=== PATIENT | female | born 1950 | race Hispanic/Latino ===

== ENCOUNTER 2017-01-31 15:46 | Emergency (ER) | payer OTHER ==
--- NOTE | 2017-01-31 16:43 | Emergency Department Report ---
ED General Adult HPI - General Chief complaint: Extremity Injury, Lower Stated complaint: CELLULITIS OF LEGS Time Seen by Provider: 01/31/17 16:19 Source: patient, RN/MD, RN notes reviewed, old records reviewed Mode of arrival: Stretcher Limitations: Other (patient is a poor historian) - History of Present Illness Initial comments: This is a 66-year-old female. Patient has a past medical history of diabetes, hypertension, bipolar disorder/psychosis, currently on a 1013. The patient is sent to the ER for issue with bilateral lower extremity pain and swelling. The patient cannot tell me how long her legs have looked like this for, she cannot describe exacerbating or relieving factors. The patient requests that she would like something to drink. She was sent to the ER today from her psychiatric facility for evaluation of bilateral lower extremity redness. Patient's old medical records are reviewed, and they do not indicate presence of rash or redness to her recent hospitalization. As per review of her psychiatric notes, patient was found to have positive edema " positive Homans sign." There was concern about DVT, and possible cellulitis. Her enclosed paperwork does not indicate if she is taking antibiotics at this time. Location: left, right, lower extremity Consistency: constant Improves with: other (per hpi) Worsens with: other (per hpi) Associated Symptoms: other (per hpi) - Related Data Home Medications Medication Instructions Recorded Confirmed Last Taken Aspirin [Adult Low Dose Aspirin EC] 81 mg PO DAILY 01/08/17 01/08/17 Unknown Benztropine [Cogentin] 0.5 mg PO BID 01/08/17 01/08/17 Unknown Clonidine HCl [Catapres] 1 mg PO DAILY 01/08/17 01/08/17 Unknown Depakote 1,000 mg PO HS 01/08/17 01/08/17 Unknown Folic Acid 1 mg PO DAILY 01/08/17 01/08/17 Unknown Haloperidol [Haldol] 2 mg PO BID 01/08/17 01/08/17 Unknown Insulin Regular, Human 3 units SUB-Q TIDAC 01/08/17 01/08/17 Unknown Latuda 80 mg PO DAILY 01/08/17 01/08/17 Unknown Multivitamin Tab 1 tab PO DAILY 01/08/17 01/08/17 Unknown Propranolol [Inderal] 10 mg PO DAILY 01/08/17 01/08/17 Unknown amLODIPine [Norvasc] 5 mg PO DAILY 01/08/17 01/08/17 Unknown traZODone [Desyrel] 25 mg PO QHS PRN 01/08/17 01/08/17 Unknown Previous Rx's Medication Instructions Recorded Last Taken Type Clopidogrel [Plavix] 75 mg PO QDAY #30 tablet 01/13/17 Unknown Rx Insulin Glargine [Lantus VIAL] 5 units SQ QHS 30 Days 01/13/17 Unknown Rx OLANzapine ZYDIS [ZyPREXA Zydis] 5 mg PO HS #7 tab.rapdis 01/13/17 Unknown Rx VALPROIC ACID Liq [DepaKENE Liq] 1,000 mg PO HS 7 Days 01/13/17 Unknown Rx VALPROIC ACID Liq [DepaKENE Liq] 500 mg PO DAILY 1 Days 01/13/17 Unknown Rx cloNIDine-TTS PATCH [Catapres-Tts 0.3 mg TD QWEEK #7 patch 01/13/17 Unknown Rx Patch] metFORMIN [Glucophage] 850 mg PO BIDDIAB #60 tablet 01/13/17 Unknown Rx traZODone [Desyrel] 50 mg PO QHS #7 tablet 01/13/17 Unknown Rx Doxycycline [Vibramycin CAP] 100 mg PO Q12HR #13 capsule 01/31/17 Unknown Rx Triamcinolone Acetonide 15 gm TP BID #1 cream..g. 01/31/17 Unknown Rx Allergies Allergy/AdvReac Type Severity Reaction Status Date / Time Unable to Assess Allergy Verified 01/07/17 05:35 ED Review of Systems ROS: Stated complaint: CELLULITIS OF LEGS Other details as noted in HPI Comment: Unobtainable due to pts medical conditions ED Past Medical Hx - Past Medical History Hx Psychiatric Treatment: Yes Additional medical history: Bi polar - Social History Smoking Status: Never Smoker - Medications Home Medications: Home Medications Medication Instructions Recorded Confirmed Last Taken Type Aspirin [Adult Low Dose Aspirin EC] 81 mg PO DAILY 01/08/17 01/08/17 Unknown History Benztropine [Cogentin] 0.5 mg PO BID 01/08/17 01/08/17 Unknown History Clonidine HCl [Catapres] 1 mg PO DAILY 01/08/17 01/08/17 Unknown History Depakote 1,000 mg PO HS 01/08/17 01/08/17 Unknown History Folic Acid 1 mg PO DAILY 01/08/17 01/08/17 Unknown History Haloperidol [Haldol] 2 mg PO BID 01/08/17 01/08/17 Unknown History Insulin Regular, Human 3 units SUB-Q TIDAC 01/08/17 01/08/17 Unknown History Latuda 80 mg PO DAILY 01/08/17 01/08/17 Unknown History Multivitamin Tab 1 tab PO DAILY 01/08/17 01/08/17 Unknown History Propranolol [Inderal] 10 mg PO DAILY 01/08/17 01/08/17 Unknown History amLODIPine [Norvasc] 5 mg PO DAILY 01/08/17 01/08/17 Unknown History traZODone [Desyrel] 25 mg PO QHS PRN 01/08/17 01/08/17 Unknown History Clopidogrel [Plavix] 75 mg PO QDAY #30 tablet 01/13/17 Unknown Rx Insulin Glargine [Lantus VIAL] 5 units SQ QHS 30 Days 01/13/17 01/08/17 Unknown Rx OLANzapine ZYDIS [ZyPREXA Zydis] 5 mg PO HS #7 tab.rapdis 01/13/17 Unknown Rx VALPROIC ACID Liq [DepaKENE Liq] 1,000 mg PO HS 7 Days 01/13/17 Unknown Rx VALPROIC ACID Liq [DepaKENE Liq] 500 mg PO DAILY 1 Days 01/13/17 Unknown Rx cloNIDine-TTS PATCH [Catapres-Tts 0.3 mg TD QWEEK #7 patch 01/13/17 Unknown Rx Patch] metFORMIN [Glucophage] 850 mg PO BIDDIAB #60 tablet 01/13/17 Unknown Rx traZODone [Desyrel] 50 mg PO QHS #7 tablet 01/13/17 Unknown Rx Doxycycline [Vibramycin CAP] 100 mg PO Q12HR #13 capsule 01/31/17 Unknown Rx Triamcinolone Acetonide 15 gm TP BID #1 cream..g. 01/31/17 Unknown Rx ED Physical Exam - General Limitations: Other (the patient is is a poor historian) General appearance: in no apparent distress - Head Head exam: Present: atraumatic, normocephalic - Eye Eye exam: Present: normal appearance. Absent: nystagmus - ENT ENT exam: Present: normal exam, normal orophraynx, mucous membranes moist, normal external ear exam - Neck Neck exam: Present: normal inspection, full ROM. Absent: tenderness, meningismus - Respiratory Respiratory exam: Present: normal lung sounds bilaterally. Absent: respiratory distress, wheezes, rales, rhonchi, stridor, chest wall tenderness, accessory muscle use, decreased breath sounds, prolonged expiratory - Cardiovascular Cardiovascular Exam: Present: regular rate, normal rhythm, normal heart sounds. Absent: bradycardia, tachycardia, irregular rhythm, systolic murmur, diastolic murmur, rubs, gallop - GI/Abdominal GI/Abdominal exam: Present: soft, normal bowel sounds. Absent: distended, tenderness, guarding, rebound, rigid, pulsatile mass - Extremities Exam Extremities exam: Present: normal inspection, full ROM, normal capillary refill , pedal edema, other (2+ pulses noted in the bilateral upper/lower extremities. The compartments are soft, 2+ edema noted in the bilateral lower extremity is , there is erythema noted to the bilateral lower extremities as well. There is no crepitus, and the compartments are soft). Absent: calf tenderness - Back Exam Back exam: Present: normal inspection, full ROM. Absent: paraspinal tenderness , vertebral tenderness - Neurological Exam Neurological exam: Present: alert, other (Extraocular movements intact. Tongue midline. No facial droop. Facial sensation intact to light touch in the V1, V2 , V3 distribution bilaterally. 5 and 5 strength in 4 extremities.. Sensation is intact to light touch in 4 extremities.). Absent: motor sensory deficit - Psychiatric Psychiatric exam: Present: flat affect - Skin Skin exam: Present: warm, dry, rash, erythema ED Course Vital Signs 01/31/17 01/31/17 01/31/17 15:50 16:02 17:00 Temperature Pulse Rate 76 Respiratory 13 Rate Blood Pressure 181/86 173/77 150/71 Blood Pressure [Left] O2 Sat by Pulse 98 97 Oximetry 01/31/17 01/31/17 01/31/17 17:35 18:00 18:16 Temperature 98.4 F Pulse Rate 79 77 Respiratory 18 12 16 Rate Blood Pressure 180/80 Blood Pressure 150/71 [Left] O2 Sat by Pulse 100 97 Oximetry - Reevaluation(s) Reevaluation #1: 01/31/17 19:05 JASKARANASHLEY Female : 1950 [facility] [id number] 01/31/17 18:55 - Nurse Note by ANDREW RODRIGUEZ [facility] Num: [id number] : 1950 Patient Age: 66 Called lab for results: Na+ 135, K+ 4.2, Chloride 95.3 Patient appears quite comfortable. Laboratory studies unremarkable. Patient is suitable for a trial of outpatient oral antibiotics, although seriously doubt cellulitis. ED Medical Decision Making - Lab Data Result diagrams: 01/31/17 17:32 01/31/17 17:32 Vital Signs 01/31/17 01/31/17 01/31/17 15:50 16:02 17:00 Temperature Pulse Rate 76 Respiratory 13 Rate Blood Pressure 181/86 173/77 150/71 Blood Pressure [Left] O2 Sat by Pulse 98 97 Oximetry 01/31/17 01/31/17 17:35 18:00 Temperature 98.4 F Pulse Rate 79 77 Respiratory 18 12 Rate Blood Pressure 180/80 Blood Pressure 150/71 [Left] O2 Sat by Pulse 100 97 Oximetry - Radiology Data Radiology results: report reviewed LIVE [facility] ASHLEY JESSICA Female : 1950 [facility]# [id number] 01/31/17 17:30 - Radiology Dept. Note by AMADA RICHARDSON [facility] Num: [id number] : 1950 Patient Age: 66 VASCULAR LAB.PRELIMINARY REPORT.BLE VENOUS DUPLEX DONE BEDSIDE. NO EVIDENCE OF DVT/SVT IN VESSELS VISUALIZED. Initialized on 01/31/17 17:30 - END OF NOTE - Medical Decision Making Differential diagnosis: DVT, cellulitis, stasis dermatitis Assessment and plan: 66-year-old female with bilateral lower extremity redness and swelling and edema, lower extremity DVT study negative in the ER, patient has appropriate pulses in the upper and lower extremities, with soft compartments. The patient most likely has a component of stasis dermatitis. She is afebrile, with reassuring vital signs, and is nontoxic-appearing. However, we'll treat patient empirically in case there is a component of cellulitis at this time. Patient will be discharged with topical triamcinolone , as well as doxycycline. She can follow up with outpatient dermatology. Critical care attestation.: If time is entered above; I have spent that time in minutes in the direct care of this critically ill patient, excluding procedure time. ED Disposition Clinical Impression: Leg swelling Disposition: [id number]/TX-65 PSY HOSP/PSY UNIT Is pt being admited?: No Does the pt Need Aspirin: No Condition: Stable Instructions: Cellulitis (ED), Stasis Dermatitis (ED) Additional Instructions: Continue current outpatient/inpatient psychiatric medications. There is no evidence of DVT noted in the ER. Symptoms most likely coming from stasis dermatitis, which can cause redness, pain and swelling. Use the triamcinolone cream as directed. Take antibiotics as directed. Follow up with a oil pit attendant within the next 2-[address] Simmons is a local library media specialist. Return to the ER right away with new pain, worsening pain, migration of pain, fevers, chills, lethargy, irritability, projectile vomiting, change in mental status, inability to tolerate liquid feeds. Prescriptions: Doxycycline [Vibramycin CAP] 100 mg PO Q12HR #13 capsule Triamcinolone Acetonide 15 gm TP BID #1 cream..g. Referrals: PRIMARY CAREMD [Primary Care Provider] - 3-5 Days LUPE SIMMONS MD [Staff Physician] - 3-5 Days
[2017-01-31 18:10] VITALS: BP 180/80
[2017-01-31 18:25] LABS: Hematocrit 36.2 % (30.3-42.9); Hemoglobin 12.2 gm/dl (10.1-14.3); Mean Corpuscular HGB Conc 34 % (30-34); Mean Corpuscular Hemoglobin 31 pg (28-32); Mean Corpuscular Volume 93 fl (79-97); Platelet Count 258 K/mm3 (140-440); Red Blood Count 3.91 M/mm3 (3.65-5.03); Red Cell Distribution Width 13.3 % (13.2-15.2); White Blood Count 7.2 K/mm3 (4.5-11.0)
[2017-01-31 18:28] LABS: Chloride 95.3 mmol/L (98-107); Potassium 4.2 mmol/L (3.6-5.0)
[2017-01-31 18:35] LABS: INR 0.87 (0.87-1.13)
== END 2017-01-31 19:14 ==
LOC: ED 15:46
DX: R60.0 Localized edema (principal); F31.9 Bipolar disorder, unspecified; I10 Essential (primary) hypertension; E11.9 Type 2 diabetes mellitus without complications; Z79.82 Long term (current) use of aspirin
CPT/HCPCS: 36415; 80048; 80164; 82550; 85027; 85610; 85730; 93970